=== PATIENT | female | born 1975 | race Hispanic/Latino ===

== ENCOUNTER 2022-04-25 19:54 | Emergency (ER) | payer OTHER ==
[2022-04-25] MEDS ORDERED: 0.9%NACL 1000ML 1,000 ML IV ONE ×2 (20:30→21:30)
[2022-04-25 20:41] LABS: BASOPHILS % (AUTO) 0.2 % (0.0-5.0); EOSINOPHILS % (AUTO) 0.2 % (0.0-8.0); LYMPHOCYTES % (AUTO) 5.1 % (21.0-51.0); MEAN CORPUSCULAR HGB CONC 34.3 g/dL (32.0-36.0); MEAN CORPUSCULAR VOLUME 90.2 fL (79-99); MONOCYTES % (AUTO) 5.4 % (3.0-13.0); NEUTROPHILS % (AUTO) 88.7 % (40.0-77.0); PLATELET COUNT (AUTO) 275 K/uL (130-400); RED CELL DISTRIBUTION WIDTH 13.1 % (11.0-15.5); WHITE BLOOD COUNT (AUTO) 16.4 K/uL (4.8-10.8)
[2022-04-25 20:50] LABS: CREATININE 0.7 mg/dL (0.5-1.5); POTASSIUM 3.8 mmol/L (3.5-5.1)
[2022-04-25 20:59] LABS: ALBUMIN 3.3 g/dL (3.5-5.0); TOTAL PROTEIN, SERUM 7.2 g/dL (6.0-8.3)
[2022-04-25 21:08] LABS: APPEARANCE,URINE CLEAR (CLEAR); BILIRUBIN,URINE NEGATIVE (NEGATIVE); COLOR,URINE YELLOW (YELLOW); GLUCOSE, URINE (UA) NEGATIVE (NEGATIVE); KETONES,URINE NEGATIVE (NEGATIVE); LEUKOCYTE ESTERASE ,URINE NEGATIVE (NEGATIVE); NITRATE,URINE NEGATIVE (NEGATIVE); OCCULT BLOOD,URINE NEGATIVE (NEGATIVE); PROTEIN,URINE NEGATIVE (NEGATIVE); UROBILINOGEN,URINE 0.2 mg/dL (0.2-1.0)
[2022-04-25] MEDS ORDERED: KETOROLAC 15MG/ML VIAL (15MG/ML) IV ONE (21:30)
[2022-04-25] MEDS ORDERED: ONDANSETRON 4MG INJ IVP ONE (21:30)
[2022-04-25 21:41] VITALS: BP 128/74
[2022-04-25] MEDS ORDERED: IOHEXOL 350 MG/ML 100ML INFUS..BTL IV ONE (22:21)
[2022-04-25] MEDS ORDERED: ONDA4TAB10 PO (23:13)
== END 2022-04-25 23:33 | disposition home or self-care (01) ==
LOC: EDH 19:54
DX: T67.5XXA Heat exhaustion, unspecified, initial encounter (principal); K40.30 Unilateral inguinal hernia, with obstruction, without gangrene, not specified as recurrent; Z20.822 Contact with and (suspected) exposure to COVID-19; E11.9 Type 2 diabetes mellitus without complications; E78.00 Pure hypercholesterolemia, unspecified; I10 Essential (primary) hypertension; X58.XXXA Exposure to other specified factors, initial encounter; Y93.89 Activity, other specified; Y92.89 Other specified places as the place of occurrence of the external cause; Y99.8 Other external cause status
CPT/HCPCS: 99285; 74177; 96374; 96361; 87635; 96375; 84484; 80053; 83690; 85025; 81003; 81025; 36415; 93005 ×2; C9803; J7030 ×2; J2405; J1885; Q9967